=== PATIENT | male | born 1935 | race Caucasian/White ===

== ENCOUNTER → 2019-09-11 | Outpatient (CLI) | payer OTHER ==
[2019-03-29 15:25] VITALS: BP 109/68
[~2019-09-11] MED LIST: ACET500T33 PO; ASPI-630 PO; CLOP75TA57 PO; DAPA10TA PO; DULO30CA2 PO; DULO60CA6 PO; GABA600T7 PO; GLIM2TAB3 PO; HYDR-3164 PO; ISOS30TA4 PO; METO-239 PO; NITR0.4T22 SL; SIMV40TA18 PO; TOLT4CAP PO
--- NOTE | 2019-09-11 21:57 | PAIN ---
DATE OF SERVICE: 09/11/2019 INITIAL CONSULTATION FOR PAIN CLINIC CHIEF COMPLAINT: Neck and left upper extremity pain. HISTORY OF PRESENT ILLNESS: This is an 84-year-old male who presents with history of pain in the base of neck and shoulder as well as the left arm and hand, status post injury at work on 03/24/2019. The patient reports he fell while walking out of a free elevator. He works at the [employer]. Reports he fell, landed on his left side, had some pain in the base of the neck and shoulder ever since as well as in the upper extremity, now radiating into the hand, also some pain in the low back. He underwent kyphoplasty for T12 compression fracture in March of this year as well secondary to the fall. The patient reports prior to fall he was feeling fairly well physically. No significant pain and certainly no pain radiating to the left upper extremity that is now. The patient reports he has had physical therapy recently, which did help to some extent, helped to loosen the muscular pain in the neck and shoulder. He has also been seen by orthopedist, Dr. Reese with injections into the left shoulder as well, which helped temporarily also. The patient reports now the pain is intermittent in intensity, but always present in the left arm, mostly in the posterior triceps, biceps, into the forearm and hand, thumb and first finger with some tingling and numbness. The patient reports it is intermittent, but primarily worse at night and later in the day, aching and dull in the neck, shooting and stabbing in the arm itself. The patient reports it awakens him from sleep at least 3 times a night, does not affect his bowel or bladder control, but can affect his ability to walk. He feels off balance lately. The patient has been taking Tylenol [id number]-[id number] as well, which helps, but only by very minimal extent. The patient rates his disability rating from 0-10, 10 being worst, is a 4/5 with family home responsibilities, 4 with recreation, 5-6 with occupation, 0 in all other categories. The patient did have a CT scan of the cervical spine showing mild displaced fracture at the C2 level. This is from 03/24/2019, also with C6-C7 posterior disk protrusion and osteophyte formation, [id number]-[id number] central canal stenosis, bilateral neural foraminal stenosis, also disk osteophyte complex at C4-C5, C5-C6 with [id number] central canal stenosis as well at those levels. The patient reports no loss of motor function, but significant fatigability with left upper extremity, especially with using a fine motor movements, he has been dropping items with his left hand, reaching over his head with his hand exacerbates the pain as he is driving a car, using his left hand on the steering wheel and reaching and weightbearing with items and repetitive motions with the left arm. PAST MEDICAL HISTORY: Significant for type 2 diabetes, shortness of breath, hypertension, coronary artery disease, headaches, arthritis. PAST SURGICAL HISTORY: Previous surgeries include a carpal tunnel repair bilateral, total knee replacements bilaterally, right rotator cuff repair, right knee Najera cyst excision, concussion after a fall in March of this year. Also, previous pacemaker placement and coronary stent placements in 2018. CURRENT MEDICATIONS: Include Cymbalta and Plavix, daily baby aspirin, gabapentin, Farxiga, nitroglycerin p.r.n. and hydrocodone p.r.n. ALLERGIES: The patient has no known drug allergies. FAMILY HISTORY: Significant for diabetes and heart disease. SOCIAL HISTORY: The patient does not drink alcohol, does not smoke. Not using illegal, illicit or recreational drugs. He is a , lives locally in [place], [place]. 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 REVIEW OF SYSTEMS: The patient's review of systems is positive for those items mentioned in history of present illness. All systems reviewed and otherwise negative. It is complete, full and well documented on the patient's chart. PHYSICAL EXAMINATION: VITAL SIGNS: The patient's blood pressure 120/69, pulse 74, respirations 16, temperature 97.8 degrees Fahrenheit, height is 5 feet 6 inches, 216 pounds. GENERAL: The patient is awake, alert, oriented, appropriate, very pleasant demeanor. HEENT: Shows normocephalic, atraumatic. Extraocular movements are intact and symmetrical. Oral cavity: Mucous membranes moist and pink. Dentition is intact. NECK: Shows anterior throat supple without palpable lymphadenopathy noted. Swallow reflex symmetrical. CHEST: Shows normal on inspection. Breath sounds are clear bilaterally. HEART: Shows S1, S2 clear. No murmurs auscultated. ABDOMEN: Soft, nontender, nondistended. No palpable organomegaly is noted. No rebound or guarding demonstrated. BACK: Shows spine grossly in the midline. Cervical paraspinous muscle shows symmetrical on inspection, with palpation shows some moderate tenderness diffusely throughout the middle and lower distribution of the cervical paraspinous muscles, but only diffusely without radiation. The patient has good rotational motion of cervical spine with both right and left lateral rotation past 45 degrees closer to 90 degrees without significant pain reported. Full extension, full forward flexion without difficulty as well. EXTREMITIES: The patient's upper extremities show deep tendon reflexes at 2+ in the biceps and triceps tendons. Motor exam is strong with approximately 4 on a scale of 5 with left de icer element winder and 5/5 on the right. This is true with biceps and triceps flexion 5/5 on the right, 4/5 on the left. Peripheral pulses are 2+ radial distribution. No peripheral edema is noted. Upper extremities are warm and dry to touch, equal in color and appearance. Shoulder shrug is strong and intact without loss of strength on resistance with some minor tenderness on the left shoulder with resistance, but no loss of strength. This is true with abduction of the shoulder to 90 degrees as well. Again, some tenderness with abduction and resistance, but without loss of strength. IMPRESSION: This is an 84-year-old male with: 1. Injury at work on 03/24/2019 with subsequent pain in the base of the neck, left upper extremity in a radicular fashion. 2. CT scan of cervical spine as noted. 3. Obesity. 4. Hypertension. 5. Type 2 diabetes. 6. Coronary artery disease with anticoagulation. PLAN: Options were discussed with the patient, the patient's daughter who accompanied him this visit today and we discussed physical therapies, continuation of medication management as well as interventional techniques. He would like to pursue interventional techniques. We discussed a cervical epidural steroid injection using description as well as anatomical models to describe the procedure. The patient will await clearance with his learning support aide to hold the Plavix for 7 days. If this is deemed safe and appropriate, we will have him hold this and then return to clinic for cervical epidural steroid injection at that time. The patient was given Medrol Dosepak in the meantime as well. The patient was given instruction as well as side effects to be aware of, especially elevated blood glucose and would like to try this. We will have him return as scheduled. CRISTOBAL REEVES MD DR: SAUNDRA/anoop JOB#: [id number] / [id number] CAMILO Sena
== END | disposition home or self-care (01) ==
LOC: PNCL 13:48
PROVIDERS: ATTEND Anesthesiology
DX: M54.2 Cervicalgia (principal); I10 Essential (primary) hypertension; E11.9 Type 2 diabetes mellitus without complications; I25.10 Atherosclerotic heart disease of native coronary artery without angina pectoris; Z96.652 Presence of left artificial knee joint; Z95.0 Presence of cardiac pacemaker
CPT/HCPCS: G0463

== ENCOUNTER → 2019-10-26 | Outpatient (CLI) | payer OTHER ==
[2019-03-29 15:25] VITALS: BP 109/68
[~2019-10-26] MED LIST changes: -GLIM2TAB3 PO; +GLIM2TAB7 PO; +IOHEXOL 180 MG/ML 10 ML VIAL. ONE; +methylPREDNISolone ACETATE 40 MG/ML VIAL. ONE; +methylPREDNISolone ACETATE 80 MG/ML VIAL. ONE
--- NOTE | 2019-10-26 14:33 | PAIN ---
DATE OF SERVICE: 10/26/2019 PROGRESS NOTE FOR PAIN CLINIC DIAGNOSES: Cervical radiculopathy with cervical degenerative disk disease and cervical spinal stenosis. HISTORY OF PRESENT ILLNESS: The patient is an 84-year-old male who returns for followup status post initial evaluation and preauthorization to hold Plavix. He has been off of this now for 7 days after approval with his personal injury attorney, returns today, still significant pain in the base of the neck, left upper extremity with numbness in the fingers, shooting pain in the left arm, on and off in intensity, but always present. The patient reports it is a 2 on a scale of 10 on average and worst and its least is 0 and is a 2 today. The patient reports no new motor or sensory deficits, no new changes. The patient reports it awakens him from sleep still about every 4 hours. The patient reports no other changes, no new motor deficits. PHYSICAL EXAMINATION: VITAL SIGNS: The patient's blood pressure 120/74, pulse is 75, respirations 16, temperature 97.9 degrees Fahrenheit. Height is 5 feet 7 inches, weight is 215 pounds. GENERAL: The patient is awake, alert, oriented, appropriate, very pleasant demeanor. HEENT: Shows normocephalic, atraumatic. Extraocular movements are intact and symmetrical. Oral cavity: Mucous membranes moist and pink. Dentition is intact. NECK: Shows anterior throat supple without palpable lymphadenopathy noted. Swallow reflex symmetrical. CHEST: Shows normal on inspection. Breath sounds are clear bilaterally. HEART: Shows S1, S2 clear. No murmurs auscultated. ABDOMEN: Soft, nontender, nondistended. No palpable organomegaly is noted. No rebound or guarding demonstrated. BACK: Shows spine grossly in midline. Cervical paraspinous muscle shows symmetrical on inspection, with palpation shows some moderate tenderness diffusely, but only diffusely in the inferior aspect of the cervical paraspinous musculature, more on the left than the right into the superior medial trapezius on the left. EXTREMITIES: The patient's upper extremities show deep tendon reflexes 2+ in the biceps, triceps tendons. 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 The patient's peripheral pulses are 2+ bilaterally in the radial distribution. No peripheral edema. Options were discussed with the patient. The patient's old chart was reviewed as his current medication regimen updated. Current review of systems updated today as well. We will proceed with a cervical epidural steroid injection today with fluoroscopic guidance. Risks were again discussed including, but not limited to bleeding, infection, possibility of epidural hematoma, subsequent neurological compromise, dural puncture, headaches, spinal cord and/or nerve damage, side effects of steroid medication, and poor results regarding pain control. The patient understands and wished to proceed. The patient will return to clinic in approximately 2 weeks for followup. He was counseled on return appointment, activity level, and side effects to be aware of. The patient will restart Coumadin tomorrow as instructed. DIAGNOSES: Cervical radiculopathy with cervical degenerative disk disease and cervical spinal stenosis. PROCEDURE: Cervical epidural steroid injection, translaminar approach C6-C7 level using C-arm fluoroscopic guidance under sterile prep and drape using local anesthetic. MEDICATION INJECTED: A total of 120 mg Depo-Medrol plus 5 mL of preservative-free normal saline and 2 mL of contrast. CONDITION AT DISCHARGE: Stable. The patient tolerated procedure well, had no complications. CRISTOBAL REEVES MD DR: SAUNDRA/anoop JOB#: [id number] / [id number]
== END | disposition home or self-care (01) ==
LOC: PNCL 10:17
PROVIDERS: ATTEND Anesthesiology
DX: M50.123 Cervical disc disorder at C6-C7 level with radiculopathy (principal); Z98.890 Other specified postprocedural states
CPT/HCPCS: 62321; J1030; J1040; Q9965

== ENCOUNTER → 2019-11-09 | Outpatient (CLI) | payer OTHER ==
[2019-03-29 15:25] VITALS: BP 109/68
[~2019-11-09] MED LIST changes: -IOHEXOL 180 MG/ML 10 ML VIAL. ONE; -methylPREDNISolone ACETATE 40 MG/ML VIAL. ONE; -methylPREDNISolone ACETATE 80 MG/ML VIAL. ONE
--- NOTE | 2019-11-09 11:52 | PAIN ---
DATE OF SERVICE: 11/09/2019 PROGRESS NOTE FOR PAIN CLINIC DIAGNOSES: Cervical radiculopathy with cervical degenerative disk disease and cervical spinal stenosis. HISTORY OF PRESENT ILLNESS: The patient is an 84-year-old male who returns for followup status post cervical epidural steroid injection x 1. The patient reports about 90% improvement and still lasting in his left upper extremity. The patient reports he is sleeping better at night. He has been increased his activity, doing greater motion with his left upper extremity, repetitive lifting and weightbearing with much greater ease and comfort. The patient reports his pain is only minimal as a 1 on a scale of 10 at its average, 2 at its worst and a 0 at its least. The patient reports it is 0 today. The patient reports no new changes, no new motor or sensory deficits or other complaints. He is very pleased with his progress thus far. PHYSICAL EXAMINATION: VITAL SIGNS: The patient's blood pressure 140/72, pulse 78, respirations 16, temperature 97.9 degrees Fahrenheit, height is 5 feet 7 inches, weight is 215 pounds. GENERAL: The patient is awake, alert, oriented, appropriate, very pleasant demeanor. HEENT: Head shows normocephalic, atraumatic. The patient is wearing eyeglasses. Extraocular movements are intact and symmetrical. Oral cavity: Mucous membranes moist and pink. Dentition is intact. NECK: Shows anterior throat supple without palpable lymphadenopathy noted. Swallow reflex symmetrical. CHEST: Shows normal on inspection. Breath sounds clear to auscultation bilaterally. HEART: Shows S1, S2 clear. No murmurs auscultated. ABDOMEN: Soft, nontender, nondistended. No palpable organomegaly is noted. No rebound or guarding demonstrated. BACK: The patient's neck shows good rotational motion of cervical spine, both laterally as well as extension and flexion without significant increase in pain. EXTREMITIES: Upper extremities show deep tendon reflexes at 2+ in the biceps and triceps tendons. Motor exam is strong with still about 4/5 left gas blender strength but 5/5 on the right. Bicep and tricep flexion is 5/5 and symmetrical. Peripheral pulses are 2+ radial distribution. No peripheral edema is noted. Options were discussed with the patient. The patient's old chart was reviewed as his current medication regimen updated. Current review of systems updated today as well. We will hold on further injections at this time. The patient is still on his Plavix as well which will be much better with 90% improvement. If pain begins to return, we did discuss with the patient calling and holding her Plavix once again for potential repeat cervical epidural steroid injection; however, at this time, he will increase his activity as tolerated, maintain stretching and strengthening exercises with his left arm and shoulder and follow up at this time on as needed basis. CRISTOBAL REEVES MD DR: SAUNDRA/anoop JOB#: [id number] / [id number]
== END | disposition home or self-care (01) ==
LOC: PNCL 10:03
PROVIDERS: ATTEND Anesthesiology
DX: M50.10 Cervical disc disorder with radiculopathy, unspecified cervical region (principal); M48.02 Spinal stenosis, cervical region
CPT/HCPCS: G0463

== ENCOUNTER → 2021-03-11 | Outpatient (CLI) | payer OTHER ==
[2019-03-29 15:25] VITALS: BP 109/68
[~2021-03-11] MED LIST changes: -ISOS30TA4 PO; +ISOS30TA68 PO
[2021-03-11 10:38] LABS: BASO # 0.1 x10^3/uL (0.0-0.2); BASO % 1 % (0-3); EOS # 0.2 x10^3/uL (0.0-0.7); EOS % 3 % (0-3); HEMATOCRIT 40.9 % (39.0-53.0); HEMOGLOBIN 13.9 g/dL (13.0-17.5); LYMPH # 1.5 x10^3/uL (1.0-4.8); LYMPH % 18 % (24-48); MEAN CORPUSCULAR HEMOGLOBIN 32 pg (25-35); MEAN CORPUSCULAR HGB CONC 34 g/dL (31-37); MEAN CORPUSCULAR VOLUME 95 fL (79-100); MONO # 0.7 x10^3/uL (0.0-1.1); MONO % 9 % (0-9); NEUT # 6.1 x10^3/uL (1.8-7.7); NEUT % 70 % (31-73); PLATELET COUNT 226 x10^3/uL (140-400); RED CELL DISTRIBUTION WIDTH 13.6 % (11.5-14.5); WHITE BLOOD COUNT 8.7 x10^3/uL (4.0-11.0)
[2021-03-11 10:55] LABS: PROTHROMBIN TIME PATIENT 12.5 SEC (11.7-14.0)
[2021-03-11 10:59] LABS: ALBUMIN 3.9 g/dL (3.4-5.0); CALCIUM 9.2 mg/dL (8.5-10.1); CREATININE 1.1 mg/dL (0.7-1.3); GFR 63.9; POTASSIUM 4.4 mmol/L (3.5-5.1)
--- NOTE | 2021-03-11 11:18 | EKG ---
[facility] [address] [place] [address] Test Date: 2021-03-11 Test Time: 10:58:06 Pat Name: PENNY BARTON Department: Room: Gender: M Correspondence Review Clerk: : 1935 Requested By: IONA KEARNEY Order Number: [id number] Reading MD: Abdullahi Joyenr MD Measurements Intervals [place] Rate: 68 P: -48 IN: 202 QRS: -51 QRSD: 146 T: 123 QT: 440 QTc: 473 Interpretive Statements SR 1ST DEGREE AVB PROBABLE V-PACED ABNORMAL EKG Electronically Signed On 03-12-2021 14:29:44 CDT by Abdullahi Joyner MD
--- NOTE | 2021-03-11 11:46 | RAD ---
EXAM: Chest, 2 views. HISTORY: Preoperative evaluation. COMPARISON: None. FINDINGS: 2 views of the chest are obtained. There is no infiltrate, pleural effusion or pneumothorax . The heart is normal in size. There is a cardiac pacemaker in expected position. There has been inci dental distal right clavicular resection. IMPRESSION: No acute pulmonary finding. Electronically signed by: Jennifer Brand MD (03/11/2021 11:43 AM) [id number]
[2021-03-12 00:08] LABS: HEMOGLOBIN A1C 7.2 % (4.8-5.6)
== END ==
LOC: SURGPAT 10:05
PROVIDERS: ATTEND Orthopaedic Surgery
DX: Z01.818 Encounter for other preprocedural examination (principal); S46.812D Strain of other muscles, fascia and tendons at shoulder and upper arm level, left arm, subsequent encounter; R94.31 Abnormal electrocardiogram [ECG] [EKG]; X58.XXXD Exposure to other specified factors, subsequent encounter
CPT/HCPCS: 36415; 71046; 80048; 82040; 82306; 83036; 85025; 85610; 85651; 85730; 87641; 93005

== ENCOUNTER 2021-03-25 07:55 | Observation (INO) | payer OTHER, MEDICARE ==
[2021-03-11 10:39] VITALS: BP 158/69
[~2021-03-25] VITALS: Ht 167.6 cm; Wt 89.5 kg
[2021-03-25] VITALS (8 sets, daily range): BP systolic 105–139; BP diastolic 45–87
[~2021-03-25 07:55] MED LIST changes: +ACETAMINOPHEN 500 MG TABLET PO PRN; +EPINEPHrine VIAL 30 MG/30 ML VIAL ONE; +GABAPENTIN 300 MG CAPSULE. PO PRN; +MELOXICAM 7.5 MG TABLET PO PRN; +TRANEXAMIC ACID 1,000 MG in IV NS 50ML -- 1ST BAG INJ ONE
[2021-03-25] MEDS ORDERED: PROPOFOL 10 MG/ML (20ML) VIAL. IV ONE (07:59)
[2021-03-25] MEDS ORDERED: LIDOCAINE 2% PF 5 ML VIAL. ONE (07:59)
[2021-03-25] MEDS ORDERED: ROCURONIUM 50 MG/5 ML VIAL. ONE (08:00)
[2021-03-25] MEDS ORDERED: TRANEXAMIC ACID 1,000 MG in IV NS 50ML -- 2ND BAG INJ ONE (08:00)
[2021-03-25] MEDS ORDERED: ROPIVacaine 0.5% PF 20 ML VIAL. ONE (08:08)
[2021-03-25] MEDS ORDERED: MIDAZOLAM HCL/PF 2 MG/2 ML VIAL. ONE (08:09)
[2021-03-25] MEDS ORDERED: fentaNYL PF VIAL 100 MCG/2 ML VIAL ONE (08:09)
[2021-03-25] MEDS ORDERED: METF10007 PO (08:36)
[2021-03-25] MEDS ORDERED: CANA300T PO (08:36)
[2021-03-25] MEDS ORDERED: INSULIN LISPRO 100 UNIT/ML 3ML VIAL for OP,RR ONLY. SQ PRN (08:45)
[2021-03-25] MEDS: IV RINGERS,LACTATED 1000ML 1,000 ML IV SCH ×2 (08:48→18:30)
[2021-03-25] MEDS ORDERED: TRANEXAMIC ACID in NS IVPB 50 ML ONE (08:50)
[2021-03-25] MEDS ORDERED: INSULIN LISPRO 100 UNIT/ML 3ML VIAL for OP,RR ONLY. SQ ONE (09:00)
[2021-03-25] MEDS ORDERED: PHENYLEPHRINE 10 MG/ML VIAL. ONE (09:02)
[2021-03-25] MEDS ORDERED: VANCOMYCIN 1 GM VIAL. ONE (09:09)
[2021-03-25] MEDS ORDERED: SEVOFLURANE > 120 MINUTES. IH ONE (09:58)
[2021-03-25] MEDS ORDERED: VANCOMYCIN 1 GM VIAL. CEMENT ONE (10:35)
[2021-03-25] MEDS ORDERED: NEOSTIGMINE METHYLSULFATE 5 MG/5 ML SYRINGE. ONE (10:59)
[2021-03-25] MEDS ORDERED: 0.9 % SODIUM CHLORIDE 10 ML DISP.SYRIN. IV PRN (11:45)
[2021-03-25] MEDS ORDERED: HYDROcodone/APAP 10/325 1 TAB TABLET PO PRN (11:45)
[2021-03-25] MEDS ORDERED: IV NORMAL SALINE 1000ML BAG 1,000 ML IV SCH (11:45)
[2021-03-25] MEDS ORDERED: traMADol 50 MG TABLET PO PRN ×2 (11:45)
[2021-03-25] MEDS: IV DEXTROSE 5 %-0.45 % NACL 1,000 ML IV SCH ×2 (11:45→21:07)
[2021-03-25] MEDS ORDERED: HYDROcodone/APAP 7.5/325MG 1 TAB TABLET PO PRN (11:45)
[2021-03-25] MEDS ORDERED: PROCHLORPERAZINE 5 MG TABLET. PO PRN (11:45)
[2021-03-25] MEDS ORDERED: HYDROmorphone 2 MG/ML VIAL IV PRN (11:45)
[2021-03-25] MEDS ORDERED: ZOLPIDEM 5 MG TABLET. PO PRN (11:45)
[2021-03-25] MEDS ORDERED: oxyCODONE/APAP 5/325 1 TAB TABLET PO PRN (11:45)
[2021-03-25] MEDS ORDERED: ACETAMINOPHEN 325 MG TABLET. PO PRN (11:45)
[2021-03-25] MEDS ORDERED: DEXTROSE 50% 25 GM / 50ML DISP.SYRIN. IV PRN (11:45)
[2021-03-25] MEDS ORDERED: CALCIUM CARBONATE 500 MG TAB.CHEW PO PRN (11:45)
[2021-03-25] MEDS ORDERED: NALOXONE 0.4 MG/ML VIAL. IV PRN (11:45)
--- NOTE | 2021-03-25 13:15 | NUR ---
Arrived to unit by bed from PACU. Awake and oriented x's 4. No c/o at this time. Left arm in sling with pillow. MIRELA dressing on right shoulder is d/i. Unable to wiggle fingers at this time, still numb , warm touch and radial pulse +. O2 removed and sating 96% ra. GIO's a and SCD's on bilaterally. IVF's intact and infusing on right forearm. Oriented to room and controls. Side rails up 's 2 with call light in reach. Family at bedside.
--- NOTE | 2021-03-25 13:42 | HP ---
ADMIT DATE: 03/25/2021 PREOPERATIVE HISTORY AND PHYSICAL CHIEF COMPLAINT: Left shoulder pain and left shoulder subscapularis tear. HISTORY OF PRESENT ILLNESS: The patient is an 85-year-old male who was working at [employer], who had a fall on 03/24/2019, taking a [employer] elevator, and when he was getting out, landed on his left shoulder. He also hit his head and injured his neck and was treated on the day of injury at the Emergency Department, received a shoulder injection about a week afterwards and had mild short-term relief, but has had persistent shoulder and neck pain since that timeframe with loss of strength and difficulty lifting overhead or away from his body. He denies any previous injury or shoulder surgery on the left shoulder. He indicates a subsequent subacromial injection by Dr. Reese with limited relief and continued to have shoulder pain, did indicate a recent fall with broken ribs, but unchanged shoulder pain as a result of that incident. On examination, he has type 2 diabetes, high blood pressure, high cholesterol and a pacemaker. PAST SURGICAL HISTORY: Bilateral knee replacement, rotator cuff repair on the right and a Najera cyst removal on the right knee as well. FAMILY HISTORY: Diabetes in his mother, cancer in his father, diabetes in her brother and emphysema in a sister. SOCIAL HISTORY: Denies smoking, alcohol or drug use. MEDICATIONS: List is reviewed, which includes Plavix and oral antidiabetic medications. ALLERGIES: He has no known drug allergies. REVIEW OF SYSTEMS: Denies any chest pain, shortness of breath, recent fever, chills, focal weakness, numbness, tingling or other constitutional symptoms. PHYSICAL EXAMINATION: VITAL SIGNS: Per admission sheet. HEENT: Atraumatic, normocephalic. HEART: Regular rate and rhythm. LUNGS: Clear to auscultation bilaterally. ABDOMEN: Benign. EXTREMITIES: On examination of the left shoulder, he has full passive range of motion of bilateral shoulders. Active range of motion of the left shoulder is quite limited. He has less than 90 degrees elevation. Normal active range of motion of the right shoulder, bilateral elbows and wrists. He has very limited internal rotation strength of the left shoulder as well as abduction compared to normal strength on the right. With positive belly press and push-off test, there is no apprehension or instability. He has normal parascapular motion and significant tenderness over the biceps and has some palpable clicking present, painful with motion. He has normal examination of the contralateral shoulder with well-healed previous arthroscopic portals from right shoulder surgery. Normal alignment, stability, bilateral elbows and wrists. MRI shows a full-thickness subscapularis tear of the left shoulder with some retraction, subluxation of the biceps tendon and severe tendinosis of the remaining subscapularis and he does have a tear of the posterior superior labrum as well as increased T2 signal at the acromioclavicular joint. IMPRESSION: Full-thickness subscapularis tear and biceps subluxation. TREATMENT PLAN: I went over with him that this is a typical finding with subscapularis tear that he would have biceps subluxation. Dr. Reese had felt that he might need reverse shoulder arthroplasty based on his constellation of findings and this may be a possibility if his subscapularis shows atrophy or does not have adequate tissue quality to support a repair or not able to be mobilized adequately. I think the most likely outcome is probably a subscapularis repair and biceps tenodesis, addressing any other pathology and a reverse shoulder arthroplasty is planned as a potential backup procedure. We talked about the possibility of nonhealing, continued pain, infection, nerve or blood vessel damage, medical or other anesthetic complications. He wishes to proceed with surgical evaluation and treatment, which will occur today. CESIA KNOTT: Tomeka TID: [id number]
--- NOTE | 2021-03-25 13:43 | RAD ---
INDICATION: Reason: POST OP / Spl. Instructions: True AP of scapula and outlet view, do not move arm / History: COMPARISON: October 21, 2020 IMPRESSION: Left shoulder: 2 views obtained. Left shoulder arthroplasty changes with air and edema within the sof t tissues as typically seen postoperatively. Partial visualization of pacemaker. No periprosthetic fr acture or dislocation. Electronically signed by: Jarred Van MD (03/25/2021 12:23 PM) [id number]
[2021-03-25] MEDS: FERROUS SULFATE 325 MG TABLET. PO SCH (17:26)
[2021-03-25] MEDS: SENNOSIDES/DOCUSATE 8.6/50MG TABLET. PO SCH (17:26)
[2021-03-25] MEDS: MULTIVITAMIN with MINERAL TABLET. PO SCH (17:26)
[2021-03-25] MEDS: CELECOXIB 100 MG CAPSULE. PO SCH (20:17)
[2021-03-26 02:50] VITALS: BP 122/74
[2021-03-26] MEDS: oxyCODONE/APAP 7.5/325 1 TAB TABLET PO PRN ×3 (04:28→13:37)
[2021-03-26] MEDS: IV RINGERS,LACTATED 1000ML 1,000 ML IV SCH (04:30)
[2021-03-26] MEDS: IV DEXTROSE 5 %-0.45 % NACL 1,000 ML IV SCH (05:39)
[2021-03-26] MEDS ORDERED: MAGNESIUM HYDROXIDE 2,400 MG/30 ML ORAL.SUSP. PO PRN (06:00)
[2021-03-26 07:05] VITALS: BP 148/89
[2021-03-26] MEDS ORDERED: ACETAMINOPHEN 500 MG TABLET PO PRN (07:45)
[2021-03-26] MEDS ORDERED: metFORMIN 500 MG TABLET PO SCH (08:00)
[2021-03-26] MEDS: OXYBUTYNIN CHLORIDE 5 MG TABLET PO SCH ×2 (08:07→14:27)
[2021-03-26] MEDS: FERROUS SULFATE 325 MG TABLET. PO SCH (08:08)
[2021-03-26] MEDS: GABAPENTIN 400 MG CAPSULE. PO SCH ×2 (08:08→14:27)
[2021-03-26] MEDS: MULTIVITAMIN with MINERAL TABLET. PO SCH (08:08)
[2021-03-26] MEDS: SENNOSIDES/DOCUSATE 8.6/50MG TABLET. PO SCH (08:08)
[2021-03-26] MEDS: CELECOXIB 100 MG CAPSULE. PO SCH (08:10)
[2021-03-26] MEDS ORDERED: CLOPIDOGREL BISULFATE 75 MG TABLET PO SCH (09:00)
[2021-03-26] MEDS ORDERED: METOPROLOL SUCC 24HR ER 50 MG TAB.ER.24H. PO SCH (09:00)
[2021-03-26] MEDS ORDERED: ASPIRIN CHEWABLE 81 MG TABLET. PO SCH (09:00)
[2021-03-26] MEDS ORDERED: DULoxetine HCL 30 MG CAPSULE.DR PO SCH (09:00)
[2021-03-26] MEDS ORDERED: NON FORMULARY ITEM (Canagliflozin (Invokana) 300 MG) PO SCH (09:00)
[2021-03-26 11:20] VITALS: BP 136/59
[2021-03-26] MEDS ORDERED: OXYC-316 PO (12:59)
--- NOTE | 2021-03-26 13:02 | DISCH ---
DISCHARGE INSTRUCTIONS Condition on Discharge Condition on Discharge: Stable Activity After Discharge Activity Instructions for Disc: Activity as tolerated (Fine motor use and g entle reaching permitted) Lifting Instructions after Dis: No heavy lifting, No pulling or pushing, Do not lift >10 pounds Weight Bearing Status after Di: As tolerated Diet after Discharge Diet after Discharge: Diabetic No Calorie Level Wound Incision Care Wound/Incision Care: Ice to area for comfort, Do not change dressing (Maintain Aquacel dressing call if saturated) Community/Resources/Services Services at Discharge: PT EVALUATE & TREAT (Active range of motion and strengthening as tolerated) Contacting the DRVernell after DC Call your doctor for: Concerns you may have Follow-Up Follow up with: Dr. Goss or Ludmila 7 to 10 days IONA GOSS MD Mar 26, 2021 13:02
--- NOTE | 2021-03-26 13:31 | PDOC4 ---
Operative Note Operative Note Date of surgery: 03/25/2021 Preoperative diagnosis: Subscapularis tear with biceps split tear and subluxation Postoperative diagnosis: Massive retracted rotator cuff tear including subscapularis biceps split subluxation as well as supraspinatus infraspinatus with severe retraction Operative procedure: Left shoulder arthroscopy reverse shoulder arthroplasty and biceps tenodesis Surgeon: Wolfgang Assist: Prabhakar hampton assist Anesthesia: General plus scalene block Estimated blood loss: 75 cc Complications: None Operative indications: Please see my preoperative clinic note for detailed orthopedic operative indications and note that we did discuss the initial plan of subscapularis repair and a biceps tenodesis versus the possibility of reverse shoulder arthroplasty if his repair is not possible/irreparable and we covered risks benefits postoperative course of continued pain nonhealing premature wear or loosening instability nerve or blood vessel damage medical or other anesthetic complications among others Operative text: Patient was identified procedure verified patient placed in supine position on the operating table. After adequate amounts of general anesthesia were administered plus a pre-existing scalene block he was placed in the T-max headrest with a spider arm [place] all bony prominences were well- padded and the left shoulder was prepped and draped in standard sterile fashion. After timeout was performed patient procedure identified and verified a standard posterior portal was established and he was noted to have a split biceps tear with subluxation and a massive retracted rotator cuff tear of the infraspinatus supraspinatus and the majority of the subscapularis including full thickness tear with retraction. I therefore made the decision to convert to a reverse shoulder arthroplasty using a deltopectoral approach deltoid was taken laterally along with the cephalic vein and was bluntly dissected from the distal insertion on the humerus to avoid injury from retraction on the deltoid. Biceps was released and tenodesed the remainder of the rotator cuff retracted severely and the humeral head was then prepared with reaming to a size 11. A cut was made in about 10 degrees retroversion and reaming carried out for the trial reverse shoulder arthroplasty component. Glenoid was then fully visualized with a capsular release and a guidewire was placed low central in the glenoid with about a 10 degree declination and reaming carried out to good bleeding bone the superior aspect of which was drilled to improve ingrowth. The trabecular metal baseplate was impacted into place and excellent screw fixation was carried out with 42 mm screws to the base of the coracoid and down the scapular spine and w ere then locked. A 36 mm glenosphere was impacted on the baseplate to engage the Domingo taper and trial fitting carried out with a +3 standard polyethylene trial. Excellent stability was noted with this configuration and the 11 mm nonporous reverse shoulder stem and a +3 standard polyethylene wear assembled on the back table and after thorough irrigation of the humeral head impacted in proper rotation and shoulder was reduced with similar stability. Thorough Acacian carried out with normal saline solution with dilute Betadine lavage followed by normal saline 1 g vancomycin was placed in the joint subcutaneous closure accomplished with buried Vicryl suture skin closure with subcuticular Monocryl sterile dressings were applied patient was placed in a sling returned to recovery room stable condition having tolerated procedure well. Prabhakar hampton assist was present for the procedure assisted in patient positioning prepping draping retraction closure and dressings IONA KEARNEY MD Mar 26, 2021 13:31
--- NOTE | 2021-03-26 14:10 | NUR ---
Discharge instructions given with prescription to pt and daughter. Answered questions and concerns. Both verbalized understanding. Therapist wants to see pt one more time prior to discharge.
--- NOTE | 2021-03-26 14:31 | NUR ---
Pt took own [employer], Daughter brought from home.
--- NOTE | 2021-03-26 14:35 | NUR ---
Pt discharged home. Accompanied by daughter. Escorted out by w/c.
[2021-03-26] MEDS ORDERED: BISACODYL 10 MG SUPP.RECT. PR PRN (16:00)
[2021-03-26] MEDS ORDERED: SIMVASTATIN 40 MG TABLET. PO SCH (21:00)
--- NOTE | 2021-03-28 13:15 | PATHOLOGY ---
[facility] Accession Number: [id number] . 01 Material submitted: . humerus - HUMERAL HEAD LEFT. Modifiers: head, left . 01 Clinical history: . LEFT SHOULDER REVERSE ARTHROPLASTY FULL THICKNESS TEAR LEFT . 02 Diagnosis: Segment of bone and articular cartilage, left shoulder reverse arthroplasty: - Degenerative arthritis. (JPM:mariza; 03/27/2021) QMS 03/27/2021 1236 Local . 02 Electronically signed: . Edison Spicer MD, Pathologist NPI- [id number] . 01 Gross description: . The specimen is received in formalin, labeled "Yeison Jones Sr.". The specimen is verified as, "left humeral head". Received is a dome-shaped segment of yellow-eng bone measuring 4.8 x 4.8 x 1.7 cm in greatest dimensions. The articular surface is smooth to granular in appearance with no gross evidence of eburnation. The specimen is submitted representatively in cassette A1, following decalcification. (CAA; 03/26/2021) QA/QA 03/26/2021 1518 Local . 02 Pathologist provided ICD-10: M19.012 . 02 CPT . 702482, 770078 Specimen Comment: A courtesy copy of this report has been sent to [phone] Specimen Comment: [id number] Specimen Comment: Report sent to / DR WATERS Performed at: 01 [facility] [address], [place] [id number] MD Filipe Sarah MD Phone: [phone] Performed at: 02 [facility] [address] [place], [place] [id number] MD Edison Spicer MD Phone: [phone]
== END 2021-03-26 14:35 | disposition home or self-care (01) ==
LOC: SURG 07:55 → 4 SOUTHEST 11:47
PROVIDERS: ADMIT Orthopaedic Surgery; ATTEND Orthopaedic Surgery
DX: S46.212A Strain of muscle, fascia and tendon of other parts of biceps, left arm, initial encounter (principal); M75.102 Unspecified rotator cuff tear or rupture of left shoulder, not specified as traumatic; S43.002A Unspecified subluxation of left shoulder joint, initial encounter; E11.9 Type 2 diabetes mellitus without complications; E78.00 Pure hypercholesterolemia, unspecified; Z96.653 Presence of artificial knee joint, bilateral; Z79.899 Other long term (current) drug therapy; Z98.890 Other specified postprocedural states; Z79.01 Long term (current) use of anticoagulants; W18.30XA Fall on same level, unspecified, initial encounter; Y93.89 Activity, other specified; Y92.89 Other specified places as the place of occurrence of the external cause; Y99.8 Other external cause status
CPT/HCPCS: 23472; 73030; 82962; 96361; 96365; 96366; 97110; 97116; 97162; 97166; 97535; A4213; A4565; A4928; A4930; A6223; A6253; A6402; A6550; C1713; C1776; G0378; G0379; J0690; J1815; J3370; J7042; A4322; J0171; J2250; J2370; J2704; J2710; J2795; J3010

== ENCOUNTER → 2021-04-28 | Outpatient (CLI) | payer OTHER, MEDICARE ==
[~2021-04-28] MED LIST changes: -ACETAMINOPHEN 500 MG TABLET PO PRN; +CANA300T PO; +CHOL5000 PO; -EPINEPHrine VIAL 30 MG/30 ML VIAL ONE; -GABAPENTIN 300 MG CAPSULE. PO PRN; +MELO15TA23 PO; -MELOXICAM 7.5 MG TABLET PO PRN; +METF10007 PO; +OXYC-316 PO; -TRANEXAMIC ACID 1,000 MG in IV NS 50ML -- 1ST BAG INJ ONE
--- NOTE | 2021-04-28 15:20 | PDOC ---
Progress Note - Pain Clinic Date of Service: DOS: DATE: 04/28/21 TIME: 15:14 Diagnosis: Dx: Cervical radiculopathy with cervical spinal stenosis and cervical degenerative disc disease History or Present Illness: HPI: 85-year-old male returns for follow-up last seen November 2019 patient did very well after cervical epidural steroid injection with 90+ percent improvement in the neck pain itself. Patient reports he has had recent surgery on his left shoulder, reverse total shoulder replacement, and is doing better with the shoulder and arm however still has significant pain in the base the neck radiating into the upper left shoulder as well as some in the right shoulder mostly on the left however. Patient reports it is gotten worse over the past year or so and since his surgery is done he is looking for some treatment with his neck as it has been significantly painful and is a similar pain that he had when he was treated in October 2019 with cervical epidural steroid injection which helped significantly. Patient had history of fall while he was at work March 24, 2019 when he was walking out of a [employer] elevator at [email or web address]. Patient had MRI scan of the cervical spine showing degenerative changes as well as disc protrusions C4-5 C5-6 C6-7 and C7-T1 pa tient mild to moderate central canal stenosis at C6-7 and neuroforaminal stenosis as well as bilateral neuroforaminal stenosis C5-6 and C4-5. Patient reports pain is worse with rotation of motion cervical spine as well as extension and forward flexion exacerbates the pain and causes some radiation to the left upper shoulder with rotation to the left greater than 45 degrees. Physical Exam: VS: Blood pressure goals 129/71 pulse 84 respirations 18 temperature 90.4 F height 5 feet 7 inches weight is 186 pounds PE: PHYSICAL EXAMINATION: GENERAL: The patient is awake, alert, oriented, appropriate, very pleasant in demeanor HEENT: Shows normocephalic, atraumatic. Extraocular movements are intact and symmetrical. Oral cavity: Mucous membranes moist and pink. NECK: Shows anterior throat supple without palpable lymphadenopathy noted. Swallow reflex symmetrical. CHEST: Shows normal on inspection. Breath sounds are clear bilaterally, no rales rhonchi or wheezes auscultated. HEART: Shows S1, S2 clear. No murmurs auscultated. ABDOMEN: Soft, nontender, nondistended. BACK: Shows spine grossly in the midline. Normal-appearing cervical lordotic curvature. Cervical paraspinous muscles show symmetrical with inspection of palpation some moderate tenderness diffusely throughout the upper middle lower distribution the paraspinous muscle slightly more in the left than the right but without atrophy hypertrophy or trigger points. Patient shows good rotation of motion but again with moderate pain in the base of the neck and shoulder on the left side with left lateral rotation past 45 degrees right side has mild tenderness in the base of the neck extension flexion mild tenderness bilaterally as well without radiation. There is slightly increased thoracic kyphosis, some minor flattening of the lumbar lordotic curvature. EXTREMITIES: Upper extremities show deep tendon reflexes 2+ in the biceps and triceps tendons. 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 Peripheral pulses are 2+ radial. No peripheral edema is noted bilaterally. Upper extremities are warm and dry to touch, equal in color and appearance. Shoulder shrug strong and intact without loss of strength on resistance some minor pain on the left secondary to previous surgery. SKIN: Shows warm and dry, good turgor. No edema. No sores, rashes or bruising throughout. Procedure: Procedure: Options were discussed with patient. Patient chart reviewed his current medication regimen updated current review of systems updated today as well. We will preauthorize patient for cervical epidural steroid injections done very well with these in the past with 90+ percent improvement with similar pain returning at this time. Patient continue with stretching and strengthening exercises and will follow up with physical therapy regarding his shoulder as well. Once preauthorized, will plan on translaminar approach C6-7 level cervical epidural steroid injection with fluoroscopic guidance. Medication Injected: Med Injected: None Condition at Discharge: Condition at Discharge: Condition at discharge is stable. CRISTOBAL REEVES MD Apr 28, 2021 15:19
== END | disposition home or self-care (01) ==
LOC: PNCL 14:41
PROVIDERS: ATTEND Anesthesiology
DX: M50.10 Cervical disc disorder with radiculopathy, unspecified cervical region (principal); M48.02 Spinal stenosis, cervical region; E11.9 Type 2 diabetes mellitus without complications; M19.90 Unspecified osteoarthritis, unspecified site; N40.0 Benign prostatic hyperplasia without lower urinary tract symptoms; F32.9 Major depressive disorder, single episode, unspecified; Z79.82 Long term (current) use of aspirin; Z79.84 Long term (current) use of oral hypoglycemic drugs; Z79.899 Other long term (current) drug therapy; Z98.890 Other specified postprocedural states; Z82.49 Family history of ischemic heart disease and other diseases of the circulatory system
CPT/HCPCS: 99212; G0463

== ENCOUNTER → 2021-07-29 | Outpatient (CLI) | payer OTHER, MEDICARE ==
[~2021-07-29] MED LIST changes: -DULO60CA6 PO; +DULO60CA7 PO; +IOHEXOL 180 MG/ML 10 ML VIAL. ONE; +methylPREDNISolone ACETATE 40 MG/ML VIAL. ONE; +methylPREDNISolone ACETATE 80 MG/ML VIAL. ONE
--- NOTE | 2021-07-29 10:47 | PDOC ---
Progress Note - Pain Clinic Date of Service: DOS: DATE: 07/29/21 TIME: 10:43 Diagnosis: Dx: Cervical radiculopathy with cervical spinal stenosis and cervical degenerative disc disease History or Present Illness: HPI: 86-year-old male returns status cervical epidural steroid injection October 2019, going on 2 years ago patient did very well with the injection pain returning in the base the neck and shoulders more on the left than the right also status post left total shoulder reverse replacement. Patient reports is doing better but his pain is still persistent radiating from the neck into the left upper extremity patient reports no motor loss but significant fatigability of the left arm I did very well after the injection almost 2 years ago. Patient was 10 with his Worker's Compensation insurance and has gotten a court order now to proceed with a injection for his cervical radiculopathy. Patient reports weeks with generally better with sitting or lying down does not awaken from sleep most nights rates his pain as a 8 on scale 10 is worse over the past week 5 on average to its least is a 3 today. Describes aching and sharp can be dull and tight at times as well shooting pain is radiating in the upper extremities more on the left than the right can be constant with repetitive motions and activity as well as reaching and weightbearing. Patient reports a loss of motor function with significant fatigability of the left upper extremity. Physical Exam: VS: Blood pressure is 151/77 pulse 75 respirations 18 temperature 98.1 Fahrenheit height 5 feet 7 inches weight is 189 pounds PE: PHYSICAL EXAMINATION: GENERAL: The patient is awake, alert, oriented, appropriate, very pleasant in demeanor HEENT: Shows normocephalic, atraumatic. Extraocular movements are intact and symmetrical. Oral cavity: Mucous membranes moist and pink. Dentition is intact but in poor condition. NECK: Shows anterior throat supple without palpable lymphadenopathy noted. Swallow reflex symmetrical. CHEST: Shows normal on inspection. Breath sounds are clear bilaterally, no rales rhonchi or wheezes auscultated. HEART: Shows S1, S2 clear. No murmurs auscultated. ABDOMEN: Soft, nontender, nondistended, obese. No palpable organomegaly is noted. BACK: Shows spine grossly in the midline. Normal-appearing cervical lordotic curvature. Cervical paraspinous muscles show symmetrical inspection, palpation some moderate tenderness diffusely bilaterally in the inferior aspect the cervical paraspinous muscles more on the left than the right but present bilaterally. Patient has good rotation of motion cervical spine both laterally most full extension full forward flexion without significant difficulty. There is slightly increased thoracic kyphosis, some minor flattening of the lumbar lordotic curvature. EXTREMITIES: Upper extremities show deep tendon reflexes 2+ in the biceps and tricep tendons. 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 Peripheral pulses are 2+ radial. No peripheral edema is noted bilaterally. Upper extremities are warm and dry to touch, equal in color and appearance. SKIN: Shows warm and dry, good turgor. No edema. No sores, rashes or bruising throughout. Procedure: Procedure: Options were discussed with patient. Patient chart reviewed his current medication regimen updated current review of systems updated today as well. We will proceed with a cervical epidural steroid injection today with fluoroscopic guidance. Risks were discussed including but not limited to: Bleeding, infection, possibility of epidural hematoma and subsequent neurological compromise, dural puncture, headaches, spinal cord and/or nerve damage, side effects of steroid medication, and poor results regarding pain control. Patient understands and wished to proceed. Patient return to clinic in approximately 2 weeks for follow-up, was counseled return appointment, Activella, and side effects to be aware of. Medication Injected: Med Injected: Procedure cervical epidural steroid injection at the C6-7 level, using local anesthetic under sterile prep and drape using C-arm fluoroscopic guidance under local anesthesia medications injected ;120 mg Depo-Medrol +5 mL normal saline and 2 mL contrast; condition at discharge is stable patient tolerated procedure well. and had no complications Condition at Discharge: Condition at Discharge: Condition at discharge is stable, patient already procedure well had no complications. CRISTOBAL REEVES MD Jul 29, 2021 10:47
--- NOTE | 2021-07-29 10:48 | PDOC4 ---
Procedure Note: ICD 10 Code: ICD 10 Code: M54.12 M4 8.02 M5 0.30 Procedure Note: Patient was consented for cervical epidural steroid injection with fluoroscopic guidance risks were discussed including but not limited to: Bleeding, infection, possibility of epidural hematoma and subsequent neurological compromise, dural puncture, headaches, spinal cord and/or nerve damage, side effects of steroid medication, and poor results regarding pain control. Patient understands and wished to proceed. Procedure cervical epidural steroid injection at the C6-7 level, using local a nesthetic under sterile prep and drape using C-arm fluoroscopic guidance under local anesthesia medications injected ;120 mg Depo-Medrol +5 mL normal saline and 2 mL contrast; condition at discharge is stable patient tolerated procedure well. and had no complications CRISTOBAL REEVES MD Jul 29, 2021 10:48
== END | disposition home or self-care (01) ==
LOC: PNCL 09:53
PROVIDERS: ATTEND Anesthesiology
DX: M50.10 Cervical disc disorder with radiculopathy, unspecified cervical region (principal); M48.02 Spinal stenosis, cervical region; I10 Essential (primary) hypertension; E78.00 Pure hypercholesterolemia, unspecified; K21.9 Gastro-esophageal reflux disease without esophagitis; N40.0 Benign prostatic hyperplasia without lower urinary tract symptoms; E11.9 Type 2 diabetes mellitus without complications; F32.9 Major depressive disorder, single episode, unspecified; Z79.82 Long term (current) use of aspirin; Z79.84 Long term (current) use of oral hypoglycemic drugs; Z79.899 Other long term (current) drug therapy; Z98.890 Other specified postprocedural states
CPT/HCPCS: 62321; J1030; J1040; Q9965

== ENCOUNTER → 2021-08-25 | Outpatient (CLI) | payer OTHER, MEDICARE ==
[~2021-08-25] MED LIST changes: -IOHEXOL 180 MG/ML 10 ML VIAL. ONE; -methylPREDNISolone ACETATE 40 MG/ML VIAL. ONE; -methylPREDNISolone ACETATE 80 MG/ML VIAL. ONE
--- NOTE | 2021-08-25 11:00 | PDOC ---
Progress Note - Pain Clinic Date of Service: DOS: DATE: 08/25/21 TIME: 10:56 Diagnosis: Dx: Cervical radiculopathy with cervical spinal stenosis and cervical degenerative disc disease History or Present Illness: HPI: 86-year-old male returns for follow-up status post cervical epidural steroid injection July 29. Patient did very well with about 50% improvement but his pain is returning now in the base of the neck and shoulders patient reports he has not rating to the upper extremities at this time is in the base the shoulder slightly more on the left than the right patient rates as a 7 on scale 10 is worse over the past week 3 on average 3 its least is a 3 today. Patient is aching and sharp touching pulling sensation in the base of the neck with rotation motion especially extension of the cervical spine. Patient reports no loss of motor function but feels a "popping" when he is moving his neck at times. Patient reports generally does not awaken from sleep at night better with sitting or resting worse with repetitive motions reading or extension of the cervical spine. Physical Exam: VS: Blood pressure is 135/93 pulse 70 respirations 16 temperature 98.1 F height is 5 feet 7 inches weight is 192 pounds PE: PHYSICAL EXAMINATION: GENERAL: The patient is awake, alert, oriented, appropriate, very [facility] [place] by his daughter. HEENT: Shows normocephalic, atraumatic. Extraocular movements are intact and symmetrical. Oral cavity: Mucous membranes moist and pink. Lower dentition is intact. NECK: Shows anterior throat supple without palpable lymphadenopathy noted. Swallow reflex symmetrical. CHEST: Shows normal on inspection. Breath sounds are clear bilaterally, no rales rhonchi or wheeze auscultated. HEART: Shows S1, S2 clear. No murmurs auscultated. ABDOMEN: Soft, nontender, nondistended, obese. No palpable organomegaly is noted. BACK: Shows spine grossly in the midline. Normal-appearing cervical lordotic curvature. Cervical paraspinous muscles show symmetrical inspection, on palpation some moderate tenderness diffusely in the inferior aspect of the cervical paraspinous muscles as well as into the superior medial trapezius slightly more tender on the left than the right but without trigger points without atrophy hypertrophy or asymmetry. Patient shows good rotation motion cervical spine with some moderate tenderness with extension and forward flexion but not with right and left lateral rotation. There is slightly increased thoracic kyphosis, some minor flattening of the lumbar lordotic curvature. Lumbar paraspinous muscles show symmetrical on inspection, on palpation shows some moderate tenderness diffusely throughout the upper, middle and lower distribution of the paraspinous muscles, but without specific trigger points, without radiation of pain. The patient has good rotational motion of the lumbar spine, both laterally as well as extension and flexion without significant difficulty. No tenderness over the spinous processes, sacrum or sacroiliac regions. EXTREMITIES: Upper extremities show deep tendon reflexes 2+ in the biceps and triceps tendons. 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 Peripheral pulses are 1 radial. No peripheral edema is noted bilaterally. Upper extremities are warm and dry to touch, equal in color and appearance. SKIN: Shows warm and dry, good turgor. No edema. No sores, rashes or bruising throughout. Procedure: Procedure: Options were discussed with the patient. Patient chart was reviewed his his current medication regimen updated current review of systems updated today as well. We will schedule for second cervical epidural steroid injection to reinforce and help enhance the first injection, we will have patient hold his Plavix once again and pending preauthorization with his Worker's Comp. provider return for cervical epidural steroid injection #2 with fluoroscopic guidance. Medication Injected: Med Injected: None Condition at Discharge: Condition at Discharge: Condition at discharge is stable. CRISTOBAL REEVES MD Aug 25, 2021 11:00
== END | disposition home or self-care (01) ==
LOC: PNCL 10:18
PROVIDERS: ATTEND Anesthesiology
DX: M50.10 Cervical disc disorder with radiculopathy, unspecified cervical region (principal); M48.02 Spinal stenosis, cervical region; G89.29 Other chronic pain; I10 Essential (primary) hypertension; E78.00 Pure hypercholesterolemia, unspecified; F32.9 Major depressive disorder, single episode, unspecified; M19.90 Unspecified osteoarthritis, unspecified site; F41.9 Anxiety disorder, unspecified; Z98.890 Other specified postprocedural states; Z79.899 Other long term (current) drug therapy; Z96.653 Presence of artificial knee joint, bilateral; Z95.0 Presence of cardiac pacemaker
CPT/HCPCS: 99212; G0463

== ENCOUNTER → 2021-09-08 | Outpatient (CLI) | payer OTHER, MEDICARE ==
[~2021-09-08] MED LIST changes: +IOHEXOL 180 MG/ML 10 ML VIAL. ONE; +methylPREDNISolone ACETATE 40 MG/ML VIAL. ONE; +methylPREDNISolone ACETATE 80 MG/ML VIAL. ONE
--- NOTE | 2021-09-08 09:45 | PDOC ---
Progress Note - Pain Clinic Date of Service: DOS: DATE: 09/08/21 TIME: 09:42 Diagnosis: Dx: Cervical radiculopathy with cervical spinal stenosis and cervical degenerative disc disease History or Present Illness: HPI: 86-year-old male returns for follow-up after holding Plavix for 7days with previous cervical epidural steroid injection with about 50% improvement for several weeks pain returning in the base of the neck and shoulders now more in the left shoulder than the right but patient has had previous shoulder replacement and is uncertain if it is coming just from that or from the neck as well patient reports it is definitely changed and new pain in the left shoulder which is been more noticeable and inability to reach posterior behind his back with his left arm patient reports is an 8 on scale 10 is worst over the past week 3 on average 3 days least is a 3 today patient reports otherwise doing fa irly well with the pain still in the base of the neck and shoulders patient which is aching and constant worse with activity standing walking repetitive motions with trying to reach over his head with his hands and reaching backwards with his left arms, more painful in the shoulder and neck itself patient reports it wakes him sleep about every 4-5 hours he usually change position and get back to sleep patient reports no bowel or bladder incontinence no motor loss but significant fatigability of the upper extremities bilaterally. Physical Exam: VS: Blood pressure is 120/62 pulse 77 respirations 16 temperature 98.1 F weight is 193 pounds PE: PHYSICAL EXAMINATION: GENERAL: The patient is awake, alert, oriented, appropriate, very pleasant in demeanor HEENT: Shows normocephalic, atraumatic. Extraocular movements are intact and symmetrical. Oral cavity: Mucous membranes moist and pink. NECK: Shows anterior throat supple without palpable lymphadenopathy noted. Swallow reflex symmetrical. CHEST: Shows normal on inspection. Breath sounds are clear bilaterally, distant but no rales or. HEART: Shows S1, S2 clear. No murmurs auscultated. ABDOMEN: Soft, nontender, nondistended, obese. No palpable organomegaly is noted. BACK: Shows spine grossly in the midline. Normal-appearing cervical lordotic curvature. Cervical paraspinous muscles are symmetrical inspection, palpation some moderate tenderness diffusely bilaterally diffusely without significant radiation patient does show good rotation motion with some moderate tenderness with extension as well as forward flexion but not as tender with right and left lateral rotation greater than 45 degrees bilaterally. There is slightly increased thoracic kyphosis, some minor flattening of the lumbar lordotic curvature. EXTREMITIES: Upper extremities show deep tendon reflexes 2+ in the patellar and tendo calcaneus tendons. Motor exam is 5 on a scale of 5 with right dorsiflexion, extension, quadriceps and hamstring flexion and 4/5 on the left. Peripheral pulses are 1+ posterior tibial. No peripheral edema is noted bilaterally. Upper extremities are warm and dry to touch, equal in color and appearance. Shoulder shrug is strong intact without loss of strength on resista nce. SKIN: Shows warm and dry, good turgor. No edema. No sores, rashes or bruising throughout. Procedure: Procedure: Options were discussed with patient. Patient chart was reviewed his current medication regimen updated current review of systems updated today as well. We will proceed with a cervical epidural steroid injection today with fluoroscopic guidance. Risks were discussed including but not limited to: Bleeding, infection, possibility of epidural hematoma and subsequent neurological compromise, dural puncture, headaches, spinal cord and/or nerve damage, side effects of steroid medication, and poor results regarding pain control. Patient understands and wished to proceed. Patient return to the clinic in approximate 3 weeks, will restart Plavix tomorrow 09/09/2021. Medication Injected: Med Injected: Procedure cervical epidural steroid injection at the C6-7 level, using local anesthetic under sterile prep and drape using C-arm fluoroscopic guidance under local anesthesia medications injected ;120 mg Depo-Medrol +5 mL normal saline and 2 mL contrast; condition at discharge is stable patient tolerated procedure well. and had no complications Condition at Discharge: Condition at Discharge: Condition at discharge is stable, patient tolerated procedure well and had no complications. CRISTOBAL REEVES MD Sep 08, 2021 09:45
--- NOTE | 2021-09-08 09:46 | PDOC4 ---
Procedure Note: ICD 10 Code: ICD 10 Code: M54.12 M50.30 M4 8.02 Procedure Note: Patient was consented for cervical epidural steroid injection with fluoroscopic guidance risks were discussed including but not limited to: Bleeding, infection, possibility of epidural hematoma and subsequent neurological compromise, dural puncture, headaches, spinal cord and/or nerve damage, side effects of steroid medication, and poor results regarding pain control. Patient understands and wished to proceed. Procedure cervical epidural steroid injection at the C6-7 level, using local an esthetic under sterile prep and drape using C-arm fluoroscopic guidance under local anesthesia medications injected ;120 mg Depo-Medrol +5 mL normal saline and 2 mL contrast; condition at discharge is stable patient tolerated procedure well. and had no complications CRISTOBAL REEVES MD Sep 08, 2021 09:46
== END | disposition home or self-care (01) ==
LOC: PNCL 09:21
PROVIDERS: ATTEND Anesthesiology
DX: M50.10 Cervical disc disorder with radiculopathy, unspecified cervical region (principal); M48.02 Spinal stenosis, cervical region; M54.12 Radiculopathy, cervical region; I10 Essential (primary) hypertension; E78.00 Pure hypercholesterolemia, unspecified; E11.9 Type 2 diabetes mellitus without complications; M19.90 Unspecified osteoarthritis, unspecified site; N40.0 Benign prostatic hyperplasia without lower urinary tract symptoms; F32.9 Major depressive disorder, single episode, unspecified; Z79.82 Long term (current) use of aspirin; Z79.84 Long term (current) use of oral hypoglycemic drugs; Z79.899 Other long term (current) drug therapy; Z98.890 Other specified postprocedural states
CPT/HCPCS: 62321; J1030; J1040; Q9965